=== PATIENT | female | born 1935 | race Caucasian/White ===

== ENCOUNTER 2016-11-24 06:34 | Inpatient (IN) ==
[2016-11-24] MEDS ORDERED: ACETAMINOPHEN 500 MG TABLET PO ONE (07:20)
[2016-11-24] MEDS ORDERED: NOZIN NASAL SWAB NAS ONE ×2 (07:30→11:09)
[2016-11-24] MEDS ORDERED: SALINE FLUSH 10ml SYRINGE IVF PRN (07:30)
[2016-11-24] MEDS ORDERED: LIDOCAINE 1% (10mg/ml) 10mL MDV SQ ONE (07:30)
--- NOTE | 2016-11-24 07:42 | Anesthesia Preoperative Report ---
Anesthesia Preoperative Record - Date and Time Date: 11/24/16 Preoperative Diagnosis: primary degenerative joint disease Proposed Procedure: left knee replacement NPO Since Date: 11/23/16 NPO Since Time: 23:00 Allergies/Adverse Reactions: Allergies Allergy/AdvReac Type Severity Reaction Status Date / Time meloxicam Allergy Intermediate SEVERE Verified 11/16/16 11:47 DIARRHEA oxycodone [From Percodan] Allergy Unknown hallucinati Verified 11/19/16 10:35 ons propoxyphene [From Darvon] Allergy Unknown Tachycardia Verified 11/09/16 16:32 Sulfa (Sulfonamide Allergy Verified 11/16/16 08:58 Antibiotics) - Vital Signs Vital Signs: Temp Pulse Resp BP Pulse Ox 98.4 F 68 13 155/84 H 95 11/24/16 07:06 11/24/16 07:21 11/24/16 07:06 11/24/16 07:06 11/24/16 07:06 Height and Weight: Height 1.59 m Weight 61.6 kg Body Mass Index 24.4 - Medications Inpatient Medications: Current Medications Cefazolin Sodium (Kefzol) 2 g IVP PREOP ONE Stop: 11/24/16 08:01 Dexamethasone (Decadron) 10 mg IVP PREOP ONE Stop: 11/24/16 08:01 Famotidine/Sodium Chloride (Pepcid Premix) 20 mg in 50 mls @ 100 mls/hr IV PREOP ONE Stop: 11/24/16 08:29 Sodium Chloride (Normal Saline) 1,000 mls @ 50 mls/hr IV .Q20H KOMAL Epinephrine HCl 0.25 mg/Bupivacaine HCl 75 ml/Morphine Sulfate 15 mg/ Sodium Chloride 108.25 mls @ 0 mls/hr IJ INTRAOP ONE; Per Protocol PRN Reason: Protocol Stop: 11/24/16 09:01 Tranexamic Acid 1,000 mg/ (Sodium Chloride) 110 mls @ 660 mls/hr IV INTRAOP ONE Stop: 11/24/16 08:39 Tranexamic Acid 1,000 mg/ (Sodium Chloride) 110 mls @ 660 mls/hr IV INTRAOP ONE Stop: 11/24/16 10:09 Metoclopramide HCl (Reglan) 10 mg IVP PREOP ONE Stop: 11/24/16 08:01 Ondansetron HCl (Zofran) 4 mg IVP PREOP ONE Stop: 11/24/16 08:01 Sodium Chloride (Iv Flush) 10 - 80 ml IVF PRN PRN PRN Reason: Flushing Home Medications: Home Medications Medication Instructions Recorded Confirmed Type Latanoprost [Latanoprost] 1 drop LEFT EYE HS 11/09/16 11/09/16 History carteolol 1 % eye drops 1 drop EACH EYE BID 50 Days 11/09/16 11/09/16 History ascorbic acid (vitamin C) 1,000 mg 1 g PO DAILY tab 11/16/16 11/19/16 History tablet cholecalciferol (vitamin D3) 1,000 1,000 mg PO DAILY tab 11/16/16 11/19/16 History unit tablet cholecalciferol (vitamin D3) 2,000 2,000 unit PO DAILY cap 11/16/16 11/19/16 History unit capsule magnesium oxide 420 mg tablet 420 mg PO DAILY tab 11/16/16 11/19/16 History omega-3s 720 mg-dha 300 mg-epa 360 1 cap PO DAILY cap 11/16/16 11/19/16 History mg-fish oil 1,200 mg capsule vitamin E 1,000 unit capsule 1,000 unit PO DAILY cap 11/16/16 11/19/16 History - Medical History Anesthesia Reactions: nausea and vomiting, other (long time to wake up hyst ) - Surgical History HEENT Surgeries: Reports: Eye Surgery (2009-glaucoma surgery) Musculoskeletal Surgery/Tx: Reports: Other (rt thumb surgery) Reproductive Surgery/Treatment: Reports: Hysterectomy - Social History Smoking Status: Never smoker - Pertinent Findings EKG Rhythm: Normal Sinus Rhythm - Physical Exam Respiratory Exam: Present: lungs clear, bilateral breath sounds equal - Airway Assessment TMD: 3 Fingerbreadths Neck Extension: good Overall Assessment: no airway concerns - ASA ASA Score: 2 - Plan Anesthesia: General Inhalation Gases Regional/Trunk Block: Spinal - Discussion Discussion: Discussed risks/options/alternatives of anesthesia and questions answered. Patient consents. Nursing pain assessment noted. Attestation Statement: Prior to the delivery of any anesthetic medication, I examined the patient, developed the plan, obtained the patient's consent and discussed the risk and benefits of the procedure with the patient/guardian.
[2016-11-24] MEDS ORDERED: VANCOMYCIN 1,000 MG INJECTION ONE (07:45)
[2016-11-24] MEDS: LR 1,000 ML IV SCH ×2 (07:46→09:01)
[2016-11-24] MEDS ORDERED: LIDOCAINE 1% (10mg/ml) 2mL INJ PF SDV ID ONE (07:50)
[2016-11-24] MEDS ORDERED: KETAMINE 500 MG/10 ML INJECTION ONE (07:56)
[2016-11-24] MEDS ORDERED: LIDOCAINE 2% (100mg/5mL) PF 5ml vl ONE (07:56)
[2016-11-24] MEDS ORDERED: FentaNYL 100 MCG/2 ML INJECTION ONE (07:56)
[2016-11-24] MEDS ORDERED: MIDAZOLAM 2mg/2ml INJECTION ONE (07:56)
[2016-11-24] MEDS ORDERED: PROPOFOL 20 ML ONE (07:56)
[2016-11-24] MEDS ORDERED: METOCLOPRAMIDE 10mg/2ml INJECTION IVP ONE (08:00)
[2016-11-24] MEDS ORDERED: ONDANSETRON 4 MG/2 ML INJECTION IVP ONE (08:00)
[2016-11-24] MEDS ORDERED: DEXAMETHASONE 4 MG/ML INJECTION IVP ONE (08:00)
[2016-11-24] MEDS ORDERED: CEFAZOLIN 1 G INJECTION IVP ONE (08:00)
[2016-11-24] MEDS ORDERED: NS 1,000 ML IV SCH (08:00)
[2016-11-24] MEDS ORDERED: FAMOTIDINE PREMIX 20 MG/50 ML BAG IV ONE (08:00)
[2016-11-24] MEDS ORDERED: TRANEXAMIC ACID 1,000 MG in NS 100 ML IV ONE ×2 (08:30→10:00)
[2016-11-24] MEDS ORDERED: EPHEDRINE 50mg/ml INJECTION ONE (08:53)
[2016-11-24] MEDS ORDERED: HYDROMORPHONE 2 MG/ML INJECTION IVP PRN (08:54)
[2016-11-24] MEDS ORDERED: EPINEPHRINE IJ ONE (09:00)
[2016-11-24] MEDS ORDERED: MORPHINE SULFATE IJ ONE (09:00)
[2016-11-24] MEDS ORDERED: BUPIVACAINE 0.25% IJ ONE (09:00)
[2016-11-24] MEDS ORDERED: NS IJ ONE (09:00)
[2016-11-24] MEDS ORDERED: ROPIVACAINE 0.5% (5mg/ml) 30ml INJ ONE (09:32)
[2016-11-24] MEDS ORDERED: VANCOMYCIN 1,000 MG INJECTION IAR ONE (09:38)
--- NOTE | 2016-11-24 09:54 | Operative Note ---
- Procedure Date of Admission: 11/24/16 Side: left Preoperative Diagnosis: knee primary DJD Postoperative Diagnosis: Same as preoperative diagnosis. Operation: total knee arthroplasty (left) Surgeon: Gerri Quintero MD Changer Fixer: IRWIN Wisdom Complications: None. Regional/Trunk Block: Spinal Estimated Blood Loss: See Anesthesia Record. Fluids: Please see Anesthesia Record. Description of Procedure: Mrs. Nick and her left knee were identified and marked in the preoperative holding area. She was brought back to the operating suite and placed supine on the operating table. Spinal anesthetic was administered. The operative lower extremity was prepped and draped in a sterile fashion. Timeout was performed. She had a varus deformity with no flexion contracture. An anterior midline incision followed by medial parapatellar arthrotomy was performed. The tourniquet was not used until cementing. Hemostasis was obtained with electrocautery. She had complete loss of cartilage and medial compartment and to a lesser extent the patellofemoral compartment. The patella was resurfaced to a size 32. A distal femoral osteotomy was then performed in 5 of valgus using intramedullary guide. The femur was sized at a for and rotation set using the epicondylar axis. Distal femoral cuts were performed with a 4-in-1 cutting block. A proximal tibial cut was then made perpendicular to its long axis using an extramedullary guide. At this point remaining meniscus and osteophytes were removed and joint cocktail was injected throughout soft tissue. Trial components were placed with a 9 mm spacer. This allowed for full extension and flexion and the patella tracked well. The leg was then exsanguinated and the tourniquet inflated to 250 mmHg. The tibia was then stamped at a size 3 at the proper rotation. The bone was then prepared for cementing and Albino Triathalon components were cemented into place and allowed to cure in extension. The tourniquet was then let down and hemostasis obtained with electrocautery. Betadine solution was used during the curing period for 3 minutes. 1 g of vancomycin powder was placed into the joint before the capsulotomy was repaired with #1 Vicryl. I then left my children's nursery assistant close the subcutaneous tissue and skin with 2-0 Vicryl and Monocryl. Dermabond was used on the skin. The drapes were then removed and she was taken to recovery room under the care of anesthesia.
--- NOTE | 2016-11-24 10:09 | History & Physical Update ---
- History and Physical Update Date: 11/24/16 Update: I evaluated this patient and found no changes in the history and clinical exam findings. The treatment plan and recommendations are also unchanged from the previous documentation.
--- NOTE | 2016-11-24 10:27 | Anesthesia Procedure Note ---
Peripheral Nerve Blockade - Procedure Physician: Sanjeev Quintero MD Date: 11/24/16 Surgical Procedure: left knee arthroplasty Discussion: Discussed risks/options/alternatives of anesthesia and questions answered. Patient consents. Nursing pain assessment noted. Block Start: 10:22 Block Stop: 10:24 Blocked Employed: Adductor Canal Indication: Post-Operative Pain Approach: Left Side Confirmed Position: Supine Patient: Consent, Risks/Benefits Discussed, Informed IV Sedation: No Initial Vital Signs: Temperature 98.4 F 11/24/16 07:06 Temperature Source Oral 11/24/16 07:06 Pulse Rate 72 11/24/16 07:06 Respiratory Rate 13 11/24/16 07:06 Blood Pressure 155/84 H 11/24/16 07:06 Blood Pressure Mean 107 11/24/16 07:06 Blood Pressure Position Sitting 11/24/16 07:06 Pulse Oximetry 95 11/24/16 07:06 Oxygen Delivery Method 11/24/16 07:06 Post Vital Signs: Temp Pulse Resp BP Pulse Ox 98.4 F 68 13 155/84 H 95 11/24/16 07:06 11/24/16 07:21 11/24/16 07:06 11/24/16 07:06 11/24/16 07:06 Initial Pain Pain Score: 0 Post Block Pain Score: 0 Prep: Chlorhexadine/ETOH Ultrasound Used?: Yes - Injectate Ropivacaine (%): 0.5 Ropivacaine (mL): 20 Was Epi 1:200,000 Used?: No Injection: Injection made incrementally with constant monitoring and aspiration every ml
--- NOTE | 2016-11-24 10:28 | Anesthesia Postoperative Note ---
- Date and Time Date: 11/24/16 Time: 10:30 - Status Patient Participated in Evaluation: Patient Participated in Person Vital Signs: Temp Pulse Resp BP Pulse Ox 98.4 F 68 13 155/84 H 95 11/24/16 07:06 11/24/16 07:21 11/24/16 07:06 11/24/16 07:06 11/24/16 07:06 Respiratory Function: Airway Patent Cardiovascular Function: Regular Pulse EKG Rhythm: Normal Sinus Rhythm Mental Status: Alert and Oriented Pain Intensity: 0 Hydration: IV Infusing Complications During Recover: None Apparent - Follow-Up Instructions Instructions: Per Surgeon
--- NOTE | 2016-11-24 10:45 | XRay Report ---
Indication: postoperative image left knee replacement PROCEDURE: XR knee LT 2V: Encounter: Initial Comparison: None Findings: Postoperative changes of left total knee replacement are seen. There is expected postoperative subcutaneous gas. No evidence of hardware failure or acute fracture. No retained radiopaque surgical instruments or sponges. Overlying material causing artifact. Impression: New left total knee prosthesis without evidence of immediate complication. .
[2016-11-24] MEDS ORDERED: DiphenhydrAMINE 50 MG/ML INJECTION IVP PRN (11:09)
[2016-11-24] MEDS ORDERED: ONDANSETRON 4 MG/2 ML INJECTION IVP PRN (11:09)
[2016-11-24] MEDS ORDERED: LORazepam 0.5 MG TABLET PO PRN (11:09)
[2016-11-24] MEDS ORDERED: DiphenhydrAMINE 25 MG CAPSULE PO PRN (11:09)
[2016-11-24] MEDS ORDERED: LORazepam 1 MG TABLET PO PRN (11:09)
[2016-11-24] MEDS: NS 1,000 ML IV SCH (11:15)
[2016-11-24] MEDS: TRAMADOL 50 MG TABLET PO PRN ×2 (13:03→22:13)
[2016-11-24] MEDS: ACETAMINOPHEN 325 MG TABLET PO SCH ×3 (13:03→21:58)
[2016-11-24] MEDS: CEFAZOLIN 2 G in NS 100 ML IV SCH (16:17)
[2016-11-24] MEDS: NOZIN NASAL SWAB NAS SCH ×2 (16:17→21:57)
[2016-11-24] MEDS: DOCUSATE SODIUM 100 MG CAPSULE PO SCH (21:59)
[2016-11-24] MEDS ORDERED: SENNOSIDES 8.6 MG TABLET PO SCH (22:00)
[2016-11-24] MEDS ORDERED: LATANOPROST 0.005% EYE DROPS 2.5ml LEFT EYE SCH (22:00)
[2016-11-24] MEDS: ASPIRIN *EC* 325 MG TABLET PO SCH (22:01)
[2016-11-24] MEDS: CARTEOLOL 1% EACH EYE SCH (22:01)
[2016-11-24] MEDS: EYE EACH EYE SCH (22:01)
[2016-11-25] MEDS: CEFAZOLIN 2 G in NS 100 ML IV SCH (00:03)
[2016-11-25] MEDS: NS 1,000 ML IV SCH (04:07)
[2016-11-25] MEDS: NOZIN NASAL SWAB NAS SCH ×2 (06:20→13:10)
--- NOTE | 2016-11-25 08:11 | Orthopedic Progress Note ---
Date: Subjective/Severity of Illness: Herve is doing great. Pain is controlled. She walked with good tolerance. She describes a difficulty initiating knee flexion yesterday but that has improved. No CP, cough or feeling SOA. Sats did dip to the mid-upper 80's after pain medicine last night. No further episodes. Pt is hopeful to go home later today. Orthopedic Objective PO Vital signs: Temp Pulse Resp BP Pulse Ox 97.9 F 72 16 116/66 96 11/25/16 07:43 11/25/16 07:43 11/25/16 07:43 11/25/16 07:43 11/25/16 07:43 Height and Weight: Height 5 ft 2.5 in Weight 135 lb 12.876 oz Body Mass Index 24.4 - Constitutional General Appearance: Present: alert, no acute distress - Respiratory Exam Present: non-labored - Cardiovascular Exam Present: pedal pulses intact - Surgical Site Incision: Mepilex dressing intact, no drainage - Neurological Exam Present: intact to light touch, no deficits - Psychiatric Exam Present: alert, normal affect - Labs Result Diagrams: 11/25/16 04:20 11/25/16 04:20 Abnormal lab results 11/25/16 Range/Units 04:20 WBC 15.5 H (4.5-11.0) T/MM3 RBC 3.58 L (4.00-5.20) M/MM3 Hgb 10.8 L (12-16) GM/DL Hct 33.2 L (36-46) % H & H 11/25/16 Range/Units 04:20 Hgb 10.8 L (12-16) GM/DL Hct 33.2 L (36-46) % Orthopedic Assessment and Plan (1) Status post total left knee replacement Status: Acute Assessment and Plan: Herve is doing well. I see no concerns with her knee stability or motion at this time. Sats decreased to mid 80's but has been stable most of the night. Monitor. WBC elevation likely due to pre op steroids. Pt is afebrile and has no s/sx of infection. I expect discharge later today. Current anti-coagulation protocol for VTE prophylaxis. SCD's. PT/OT services to improve independent function. Discharge Planning per Case Management. Hospital Course Summary Disclaimer: The visit summary below is not to be considered part of the above Progress Note.
[2016-11-25] MEDS: ASPIRIN *EC* 325 MG TABLET PO SCH (08:35)
[2016-11-25] MEDS: DOCUSATE SODIUM 100 MG CAPSULE PO SCH (08:36)
[2016-11-25] MEDS: ACETAMINOPHEN 325 MG TABLET PO SCH ×2 (08:37→13:10)
[2016-11-25] MEDS: CARTEOLOL 1% EACH EYE SCH (08:37)
[2016-11-25] MEDS: EYE EACH EYE SCH (08:37)
[2016-11-25] MEDS ORDERED: POLYETHYL GLYCOL 3350 17gm PACKET PO SCH (09:00)
[2016-11-25] MEDS: TRAMADOL 50 MG TABLET PO PRN ×2 (09:37→16:02)
[2016-11-25] MEDS ORDERED: SENNOSIDES 8.6 MG TABLET PO PRN (10:10)
--- NOTE | 2016-11-25 15:18 | Discharge Summary ---
Orthopedic Discharge Info Date of admission: 11/24/16 06:34 Primary care physician: Micah Lunsford MD Attending Physician: Sanjeev Quintero MD Consults: 11/24/16 06:48 Consult to Anesthesiology [CONS] Routine Consulting Provider: IRWIN Duarte Reason For Exam: Preoperative Assessment 11/24/16 11:09 Case Management Consult [CONS] Routine Reason For Exam: Discharge Planning DME-Walker [CONS] Routine Height: 5 ft 2.5 in Weight: 135 lb 12.876 oz Comment: change dressing in 2 weeks Total Joint Outpatient Therapy [CONS] Routine Comment: change dressing in 2 weeks - Discharge Diagnosis (1) Status post total left knee replacement Status: Acute - Laboratory Result Diagrams: 11/25/16 04:20 11/25/16 04:20 Laboratory: Abnormal lab results 11/25/16 Range/Units 04:20 WBC 15.5 H (4.5-11.0) T/MM3 RBC 3.58 L (4.00-5.20) M/MM3 Hgb 10.8 L (12-16) GM/DL Hct 33.2 L (36-46) % H & H 11/25/16 Range/Units 04:20 Hgb 10.8 L (12-16) GM/DL Hct 33.2 L (36-46) % Orthopedic Discharge HPI - HPI Comments This patient was admitted for elective surgical tx of end stage degenerative joint disease that failed to respond to conservative treatment. Further details of this is found in the admission H&P. Orthopedic Hospital Course Hospital course: 11/25/16 15:13 After appropriate preoperative clearance and signing of operative consent, the patient was given IV antibiotics, according to orthopedic protocol. The patient was taken to the operating room and underwent elective joint arthroplasty. Following surgery, antibiotics were discontinued less than 24 hours according to joint protocol. Appropriate anticoagulants were initiated and SCDs added for DVT prevention. The dressing was clean, dry, and intact. Pain control was obtained via multimodal approach. Bowel motivation addressed with scheduled and PRN medications. Early mobilization was initiated through PT services. Discharge arrangements made by a collaborative effort between the patient and Case Management. Follow-up is scheduled in 2-3 weeks. Discharge instructions given by orthopedic providers and nursing staff at discharge. Discharge condition was good. Ongoing care required?: No - Postoperative Anemia patient received IVF, labs monitored daily, no intervention required, HGB drop- acceptable - Leukocytosis due to preoperative IV Decadron, due to surgical stress response Discharge Plan - Med Rec/Dispo Referrals/Follow Up: Sanjeev Quintero MD [Physician] - 12/16/16 2:45 pm Sara Instructions: [facility] Postop Instructions Additional Instructions: ANGELICA LAWRENCE ON 11/27/2016 AT 10:00AM FOR PHYSICAL THERAPY EVAL. PHONE Prescriptions: New Aspirin *EC* [Ecotrin] 325 mg PO BID #84 PEG 3350 17gm PACKET [Miralax] 17 gm PO DAILY #30 packet Acetaminophen [Tylenol] 650 mg PO QID #100 Tramadol [Ultram] 50 - 100 mg PO Q6H PRN #60 PRN Reason: Pain Continue LORazepam [Ativan] 0.5 mg PO DAILY PRN PRN Reason: Anxiety Folic Acid/Mv,Iron,Min [One Daily For Women Tablet] 1 tab PO DAILY Latanoprost 1 drop LEFT EYE HS carteolol 1 % eye drops 1 drop EACH EYE BID 50 Days cholecalciferol (vitamin D3) 2,000 unit capsule 2,000 unit PO DAILY cap - Disposition 01 Discharged Home, Self-Care
[2016-11-26] MEDS ORDERED: BISACODYL 10 MG SUPPOSITORY RECTALLY SCH (20:00)
== END 2016-11-25 16:35 | disposition home or self-care (01) | DRG 470 ==
LOC: SRG 06:34
PROVIDERS: ADMIT Orthopaedic Surgery; ATTEND Orthopaedic Surgery

== ENCOUNTER 2017-03-02 07:30 | Inpatient (IN) ==
[~2017-03-02 07:30] MED LIST: ACETAMINOPHEN 500 MG TABLET PO ONE; DEXAMETHASONE 4 MG/ML INJECTION IVP ONE; FAMOTIDINE PB 20 MG/50 ML BAG IV ONE; LIDOCAINE 1% (10mg/ml) 2mL INJ PF SDV ID ONE; METOCLOPRAMIDE 10mg/2ml INJECTION IVP ONE; NOZIN NASAL SWAB NAS ONE; ONDANSETRON 4 MG/2 ML INJECTION IVP ONE; TRANEXAMIC ACID 1,000 MG in NS 100 ML IV ONE
[2017-03-02] MEDS ORDERED: EPINEPHrine 0.25 MG, BUPIVACAINE 0.25% PF 30 ML, MORPHINE SULFATE 15 MG, KETOROLAC INJ ... OPSITE ONE (08:00)
[2017-03-02] MEDS ORDERED: CEFAZOLIN 1 G INJECTION IVP ONE (08:26)
--- NOTE | 2017-03-02 08:29 | Anesthesia Preoperative Report ---
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 Proposed Procedure: Robotic Right total knee NPO Since Date: 03/02/17 NPO Since Time: 00:00 Allergies/Adverse Reactions: Allergies Allergy/AdvReac Type Severity Reaction Status Date / Time Sulfa (Sulfonamide Allergy Verified 01/06/17 14:38 Antibiotics) meloxicam AdvReac Intermediate SEVERE Verified 01/06/17 14:38 DIARRHEA tramadol AdvReac Intermediate Gastrointestinal Verified 02/10/17 13:59 Upset oxycodone [From Percodan] AdvReac Unknown hallucinati Verified 01/06/17 14:38 ons propoxyphene [From Darvon] AdvReac Unknown Tachycardia Verified 01/06/17 14:38 - Medications Inpatient Medications: Current Medications Epinephrine HCl 0.25 mg/Bupivacaine HCl 30 ml/Morphine Sulfate 15 mg/Ketorolac Tromethamine 60 mg/Sodium Chloride 65.25 mls @ 1 mls/hr OPSITE INTRAOP ONE PRN Reason: Protocol Stop: 03/05/17 01:14 Sodium Chloride (Iv Flush) 10 - 80 ml IV PRN PRN PRN Reason: Flushing Home Medications: Home Medications Medication Instructions Recorded Confirmed Type Latanoprost 1 drop LEFT EYE HS 11/09/16 02/11/17 History carteolol 1 % eye drops 1 drop EACH EYE BID 50 Days 11/09/16 02/11/17 History cholecalciferol (vitamin D3) 2,000 2,000 unit PO DAILY cap 11/16/16 02/11/17 History unit capsule Folic Acid/Mv,Iron,Min [One Daily 1 tab PO DAILY 11/24/16 02/11/17 History For Women Tablet] Is Patient on Beta Marisol?: No - Medical History Other History: Reports: Other (Glaucoma) - Surgical History HEENT Surgeries: Reports: Tonsillectomy Reproductive Surgery/Treatment: Reports: Hysterectomy Anesthesia Reactions: None Hx Family Anesthesia Reaction: No History of Motion Sickness: No - Social History Smoking Status: Never smoker Hx Chewing Tobacco Use: No Second Hand Exposure: No Substance Use Type: does not use Alcohol Intake Frequency: a few times a week - Pertinent Findings EKG: Sinus Rhythm - Physical Exam Respiratory Exam: Present: lungs clear Cardiovascular Exam: Present: regular rate and rhythm - Airway Assessment Mallampati Score: II TMD: 3 Fingerbreadths Neck Extension: fair Overall Assessment: no airway concerns - ASA ASA Score: 2 - Plan Regional/Trunk Block: Spinal - Discussion Discussion: Discussed risks/options/alternatives of anesthesia and questions answered. Patient consents. Nursing pain assessment noted. Present for Discussion: family member Attestation Statement: Prior to the delivery of any anesthetic medication, I examined the patient, developed the plan, obtained the patient's consent and discussed the risk and benefits of the procedure with the patient/guardian. - Additional Information Seen by Anesthesia: Yes
[2017-03-02 08:30] VITALS: BMI 24.3
[2017-03-02] MEDS: LR 1,000 ML IV SCH ×3 (08:51→13:01)
--- NOTE | 2017-03-02 09:14 | History & Physical Update ---
- History and Physical Update Date: 03/02/17 Update: I evaluated this patient and found no changes in the history and clinical exam findings. The treatment plan and recommendations are also unchanged from the previous documentation.
[2017-03-02] MEDS ORDERED: VANCOMYCIN 1,000 MG INJECTION ONE (09:37)
[2017-03-02] MEDS ORDERED: PROPOFOL 500 MG/50 ML VIAL IV ONE ×2 (10:13→11:03)
[2017-03-02] MEDS ORDERED: MIDAZOLAM 2mg/2ml INJECTION ONE (10:14)
[2017-03-02] MEDS ORDERED: EPHEDRINE 50mg/ml INJECTION ONE (10:35)
[2017-03-02] MEDS ORDERED: ONDANSETRON 4 MG/2 ML INJECTION IVP PRN ×2 (10:58→13:24)
[2017-03-02] MEDS ORDERED: HYDROMORPHONE 2 MG/ML INJECTION IVP PRN (10:58)
[2017-03-02] MEDS ORDERED: ROPIVACAINE 0.5% (5mg/ml) 30ml INJ ONE (11:03)
[2017-03-02] MEDS ORDERED: KETAMINE 500 MG/10 ML INJECTION ONE (11:37)
[2017-03-02] MEDS ORDERED: FentaNYL 100 MCG/2 ML INJECTION ONE (11:38)
[2017-03-02] MEDS: VANCOMYCIN 1,000 MG INJECTION IAR ONE ×2 (11:56→15:02)
[2017-03-02] MEDS: TRANEXAMIC ACID 1,000 MG in NS 100 ML IV ONE ×2 (12:02→14:40)
--- NOTE | 2017-03-02 12:17 | Operative Note ---
- Procedure Preoperative Diagnosis: Right knee primary degenerative joint disease Postoperative Diagnosis: Same as preoperative diagnosis. Surgeon: Gerri Quintero MD Corporate Recruiter: Sergey Valdez Complications: None. Anesthesia: Spinal. Estimated Blood Loss: See Anesthesia Record. Fluids: Please see Anesthesia Record. Description of Procedure: Mrs. Nick and her right knee were identified and marked in the preoperative holding area. She was brought back to the operating suite after a saphenous nerve block was placed in the preoperative holding area. Spinal anesthetic was administered and she was placed supine on the operating table. The right lower extremity was prepped and draped in my normal sterile fashion. Timeout was performed. The [employer] robot was used during the surgery. She had a partially correctable varus knee with a slight flexion contracture. A standard anterior midline incision followed by medial parapatellar arthrotomy was performed. Anterior fat pad and meniscus were removed. The patella was resurfaced to a size 32. I then placed a tibial array to 2 poke hole incisions in the mid tibia just medial to the crest. The pins were placed bicortically. I then placed a second femoral array again using bicortical pins in the distal femoral metaphysis medially. Checkpoints were then placed both in the femur and the tibia. The bone was then registered with the [employer] robot. Osteophytes were removed and gaps were captured both 90 and 0 with correction. The [employer] or was then used to balance the knee obtaining 18 mm gaps throughout. This was done by removing the femoral component anteriorly and distally. The [employer] robotic arm was then used to assist with the bone cuts. Posterior osteophytes and remaining meniscus were removed. Trial components were placed. We used a 4 femur and a 4 tibia with a 9 mm spacer. She tracked well and was well balanced throughout range of motion. The leg was exsanguinated and the tourniquet inflated to 250 mmHg. The bone was prepared for cementing and components were cemented into place and allowed to cure in extension. The tourniquet was let down and hemostasis obtained with electrocautery. The knee was ranged one more time to ensure good stability, balance and patellar tracking. 1 g of vancomycin powder was then placed into the knee joint. The capsulotomy was then closed with #1 Vicryl. I then left my logistics assistant to close the subcutaneous tissue with 2-0 Vicryl. Running 4-0 Monocryl will be used in the subcuticular layer. Dermabond will be used on the skin followed by sterile dressing. After drapes are removed patient will be taken to recovery room under the care of anesthesia.
--- NOTE | 2017-03-02 12:50 | Anesthesia Procedure Note ---
Peripheral Nerve Blockade - Procedure Physician: Sanjeev Quintero MD Date: 03/02/17 Surgical Procedure: right tka Discussion: Discussed risks/options/alternatives of anesthesia and questions answered. Patient consents. Nursing pain assessment noted. Block Start: 12:43 Block Stop: 12:44 Indication: Post-Operative Pain Approach: Right Side Confirmed Position: Supine Patient: Consent, Risks/Benefits Discussed, Post Block Act. Discussed IV Sedation: No Initial Vital Signs: Temperature 98.5 F 03/02/17 08:29 Temperature Source Oral 03/02/17 08:29 Pulse Rate 81 03/02/17 08:29 Respiratory Rate 16 03/02/17 08:29 Blood Pressure 144/85 H 03/02/17 08:29 Blood Pressure Mean 104 03/02/17 08:29 Blood Pressure Position Sitting 03/02/17 08:29 Pulse Oximetry 94 03/02/17 08:29 Oxygen Delivery Method 03/02/17 08:29 Post Vital Signs: Temperature 98.5 F 03/02/17 08:29 Pulse Rate 66 03/02/17 08:43 Respiratory Rate 16 03/02/17 08:29 Blood Pressure 144/85 H 03/02/17 08:29 Pulse Oximetry 94 03/02/17 08:29 Initial Pain Pain Score: 0 Post Block Pain Score: 0 Prep: Chlorhexadine/ETOH Ultrasound Used?: Yes - Injectate Ropivacaine (%): 0.5 Ropivacaine (mL): 20 Was Epi 1:200,000 Used?: No Injection: Injection made incrementally with constant monitoring and aspiration every ml
--- NOTE | 2017-03-02 12:50 | Anesthesia Postoperative Note ---
- Date and Time Date: 03/02/17 Time: 12:50 - Status Patient Participated in Evaluation: Patient Participated in Person Vital Signs: Temperature 98.5 F 03/02/17 08:29 Pulse Rate 66 03/02/17 08:43 Respiratory Rate 16 03/02/17 08:29 Blood Pressure 144/85 H 03/02/17 08:29 Pulse Oximetry 94 03/02/17 08:29 Respiratory Function: Airway Patent Cardiovascular Function: Regular Pulse EKG: Sinus Rhythm Mental Status: Alert and Oriented Pain Intensity: 0 Hydration: IV Infusing Complications During Recover: None Apparent - Follow-Up Instructions Instructions: Per Surgeon
[2017-03-02] MEDS ORDERED: LORazepam 1 MG TABLET PO PRN (13:24)
[2017-03-02] MEDS ORDERED: NOZIN NASAL SWAB NAS ONE (13:24)
[2017-03-02] MEDS ORDERED: DiphenhydrAMINE 25 MG CAPSULE PO PRN (13:24)
[2017-03-02] MEDS ORDERED: DiphenhydrAMINE 50 MG/ML INJECTION IVP PRN (13:24)
--- NOTE | 2017-03-02 13:28 | XRay Report ---
Indication: postoperative image PROCEDURE: XR knee RT 2V: Encounter: Initial Comparison: February 10, 2017 Findings: Postoperative changes of right total knee replacement are seen. There is expected postoperative subcutaneous gas. No evidence of hardware failure or acute fracture. No retained radiopaque surgical instruments or sponges. Overlying material causing artifact. Impression: New right total knee prosthesis without evidence of immediate complication. .
[2017-03-02] MEDS: NS 1,000 ML IV SCH (14:00)
[2017-03-02] MEDS: ACETAMINOPHEN 325 MG TABLET PO SCH ×4 (15:00→21:15)
[2017-03-02] MEDS: NOZIN NASAL SWAB NAS SCH ×2 (15:13→21:14)
[2017-03-02] MEDS ORDERED: SALINE FLUSH 10ml SYRINGE IV PRN (16:57)
[2017-03-02] MEDS: Oxycodone *IR* 5 MG TABLET PO PRN ×2 (17:49→21:14)
[2017-03-02] MEDS: CEFAZOLIN 2 G in NS 100 ML IV SCH (17:50)
[2017-03-02] MEDS: SENNOSIDES 8.6 MG TABLET PO SCH (21:15)
[2017-03-02] MEDS: DOCUSATE SODIUM 100 MG CAPSULE PO SCH (21:15)
[2017-03-02] MEDS: ASPIRIN *EC* 325 MG TABLET PO SCH (21:15)
[2017-03-02] MEDS: EYE EACH EYE SCH (21:18)
[2017-03-02] MEDS: CARTEOLOL 1% EACH EYE SCH (21:18)
[2017-03-02] MEDS: LATANOPROST 0.005% EYE DROPS 2.5ml LEFT EYE SCH (21:18)
[2017-03-03] MEDS: CEFAZOLIN 2 G in NS 100 ML IV SCH (01:18)
[2017-03-03] MEDS: NOZIN NASAL SWAB NAS SCH ×3 (05:59→21:04)
[2017-03-03] MEDS: Oxycodone *IR* 5 MG TABLET PO PRN (06:02)
[2017-03-03 06:38] VITALS: RESP 16
[2017-03-03] MEDS: NS 1,000 ML IV SCH ×3 (06:49→22:49)
[2017-03-03] MEDS: ASPIRIN *EC* 325 MG TABLET PO SCH ×2 (08:23→20:30)
[2017-03-03] MEDS: DOCUSATE SODIUM 100 MG CAPSULE PO SCH ×2 (08:23→20:30)
[2017-03-03] MEDS: EYE EACH EYE SCH ×2 (08:23→20:30)
[2017-03-03] MEDS: POLYETHYL GLYCOL 3350 17gm PACKET PO SCH (08:23)
[2017-03-03] MEDS: CARTEOLOL 1% EACH EYE SCH ×2 (08:23→20:30)
[2017-03-03] MEDS: ACETAMINOPHEN 325 MG TABLET PO SCH ×2 (08:24→15:40)
--- NOTE | 2017-03-03 08:31 | Orthopedic Progress Note ---
Date: Subjective/Severity of Illness: Herve is doing well. Pain is controlled with Roxicodone. She had some hallucinations with Percodan in the past but takes Hydrocodone at home with no trouble. I elected to proceed with Roxicodone and she is tolerating it well. No hallucinations or mental status change. Denies CP, or respiratory complaints. Orthopedic Objective PO Vital signs: Temperature 96.6 F L 03/03/17 08:00 Pulse Rate 71 03/03/17 08:00 Respiratory Rate 16 03/03/17 08:00 Blood Pressure 113/72 03/03/17 08:00 Pulse Oximetry 95 03/03/17 08:00 Height and Weight: Height 5 ft 2.5 in Weight 135 lb 2.294 oz Body Mass Index 24.3 - Constitutional General Appearance: Present: alert, no acute distress, other (Standing at her bedside this AM. Spirits are good. Daughter in the room with her.) - Respiratory Exam Present: non-labored, other (Sats dipped into the upper 80's overnight but is normal this AM.) - Extremities Exam Extremities: Present: pulses intact - Surgical Site Incision: Mepilex dressing intact, dressing intact, no drainage - Integumentary Exam Present: pink, warm, dry - Neurological Exam Present: no deficits - Psychiatric Exam Present: alert, normal affect - Labs Result Diagrams: 03/03/17 04:18 03/03/17 04:18 Abnormal lab results 03/03/17 03/03/17 Range/Units 04:18 04:18 WBC 16.3 H (4.5-11.0) T/MM3 RBC 3.53 L (4.00-5.20) M/MM3 Hgb 10.3 L (12-16) GM/DL Hct 31.7 L (36-46) % BUN 21.0 H (7-17) MG/DL Glucose 126 H (65-110) MG/DL H & H 03/03/17 Range/Units 04:18 Hgb 10.3 L (12-16) GM/DL Hct 31.7 L (36-46) % Orthopedic Assessment and Plan (1) Primary osteoarthritis of right knee Status: Acute Assessment and Plan: Current anti-coagulation protocol for VTE prophylaxis. SCD's. Discussed narcotic options this AM. Pt and daughter wish to remain on Roxicodone. PT/OT services to improve independent function. Discharge Planning per Case Management. - Anticoagulation Therapy Anticoagulation: ASA 325 mg PO BID x6 weeks Hospital Course Summary Disclaimer: The visit summary below is not to be considered part of the above Progress Note.
[2017-03-03] MEDS ORDERED: NON-FORMULARY MEDICATION 1 EACH EACH (Cholecalciferol (Vitamin D3) [Vitamin D3] 2,000 UNIT PO SCH (09:00)
[2017-03-03] MEDS ORDERED: SENNOSIDES 8.6 MG TABLET PO PRN (09:15)
[2017-03-03] MEDS ORDERED: METOCLOPRAMIDE 10mg/2ml INJECTION IVP PRN (10:20)
[2017-03-03] MEDS ORDERED: HYDROCODONE/APAP 7.5 MG/325 MG TABLET PO PRN (15:35)
--- NOTE | 2017-03-03 15:39 | Orthopedic Progress Note ---
Date: Subjective/Severity of Illness: Herve has been struggling with nausea and emesis all day. She feels "woozy". Her emesis occurred after breakfast this AM. Her fluids were re started. All she has eaten since then is some yogurt. PT did pass her for the car and stairs today. She is just not comfortable considering discharge at this time. I offered to switch her to Hydrocodone and she agreed. She had some hallucinations with Percodan in the past but takes Hydrocodone at home with no trouble. No hallucinations or mental status change. Denies CP, or respiratory complaints. Orthopedic Objective PO Vital signs: Temperature 95.5 F L 03/03/17 12:00 Pulse Rate 56 L 03/03/17 12:00 Respiratory Rate 16 03/03/17 12:00 Blood Pressure 116/63 03/03/17 12:00 Pulse Oximetry 96 03/03/17 12:00 Height and Weight: Height 5 ft 2.5 in Weight 135 lb 2.294 oz Body Mass Index 24.3 - Constitutional General Appearance: Present: alert, no acute distress, other (Standing at her bedside this AM. Spirits are good. Daughter in the room with her.) - Respiratory Exam Present: non-labored, other (Sats dipped into the upper 80's overnight but is normal this AM.) - Extremities Exam Extremities: Present: pulses intact - Surgical Site Incision: Mepilex dressing intact, dressing intact, no drainage - Integumentary Exam Present: pink, warm, dry - Neurological Exam Present: no deficits - Psychiatric Exam Present: alert, normal affect - Labs Result Diagrams: 03/03/17 04:18 03/03/17 04:18 Abnormal lab results 03/03/17 03/03/17 Range/Units 04:18 04:18 WBC 16.3 H (4.5-11.0) T/MM3 RBC 3.53 L (4.00-5.20) M/MM3 Hgb 10.3 L (12-16) GM/DL Hct 31.7 L (36-46) % BUN 21.0 H (7-17) MG/DL Glucose 126 H (65-110) MG/DL H & H 03/03/17 Range/Units 04:18 Hgb 10.3 L (12-16) GM/DL Hct 31.7 L (36-46) % Orthopedic Assessment and Plan (1) Primary osteoarthritis of right knee Status: Acute Assessment and Plan: Current anti-coagulation protocol for VTE prophylaxis. SCD's. I will start [place]. PT/OT services to improve independent function. Discharge Planning per Case Management. - Anticoagulation Therapy Anticoagulation: ASA 325 mg PO BID x6 weeks Hospital Course Summary Disclaimer: The visit summary below is not to be considered part of the above Progress Note.
[2017-03-03] MEDS: SENNOSIDES 8.6 MG TABLET PO SCH (20:29)
[2017-03-03] MEDS: LATANOPROST 0.005% EYE DROPS 2.5ml LEFT EYE SCH (20:30)
[2017-03-04] MEDS: NOZIN NASAL SWAB NAS SCH (05:34)
--- NOTE | 2017-03-04 07:33 | Discharge Summary ---
Orthopedic Discharge Info Date of admission: 03/02/17 08:13 Primary care physician: Micah Lunsford MD Attending Physician: Sanjeev Quintero MD Consults: 03/02/17 08:25 Consult to Anesthesiology [CONS] Routine Consulting Provider: IRWIN Duarte Reason For Exam: Preoperative Assessment 03/02/17 13:24 Case Management Consult [CONS] Routine Reason For Exam: Discharge Planning DME-[facility] [CONS] Routine Height: 5 ft 2.5 in Weight: 135 lb 2.294 oz Comment: change dressing in 2 weeks Total Joint Outpatient Therapy [CONS] Routine Comment: change dressing in 2 weeks - Discharge Diagnosis (1) Primary osteoarthritis of right knee Status: Acute - Procedures Procedures: Procedures Replacement of Right Knee Joint with Synthetic Substitute, Cemented, Open Approach (11/24/16) - Laboratory Result Diagrams: 03/04/17 04:05 03/04/17 04:05 Laboratory: Abnormal lab results 03/04/17 03/04/17 Range/Units 04:05 04:05 WBC 12.9 H (4.5-11.0) T/MM3 RBC 3.52 L (4.00-5.20) M/MM3 Hgb 10.2 L (12-16) GM/DL Hct 31.9 L (36-46) % Chloride 110 H (98-107) MEQ/L BUN 23.0 H (7-17) MG/DL BUN/Creatinine Ratio 29 H (6-26) RATIO H & H 03/03/17 03/04/17 Range/Units 04:18 04:05 Hgb 10.3 L 10.2 L (12-16) GM/DL Hct 31.7 L 31.9 L (36-46) % Orthopedic Discharge HPI - HPI Comments This patient was admitted for elective surgical tx of end stage degenerative joint disease that failed to respond to conservative treatment. Further details of this is found in the admission H&P. Orthopedic Hospital Course Hospital course: 03/04/17 07:28 After appropriate preoperative clearance and signing of operative consent, the patient was given IV antibiotics, according to orthopedic protocol. The patient was taken to the operating room and underwent elective joint arthroplasty. Following surgery, antibiotics were discontinued less than 24 hours according to joint protocol. Appropriate anticoagulants were initiated and SCDs added for DVT prevention. The dressing was clean, dry, and intact. Pain control was obtained via multimodal approach. Bowel motivation addressed with scheduled and PRN medications. Early mobilization was initiated through PT services. Discharge arrangements made by a collaborative effort between the patient and Case Management. Follow-up is scheduled in 2-3 weeks. Discharge instructions given by orthopedic providers and nursing staff at discharge. Discharge condition was good. Ongoing care required?: No - Postoperative Anemia patient received IVF, labs monitored daily, no intervention required, HGB drop- acceptable - Leukocytosis due to surgical stress response Discharge Plan - Med Rec/Dispo Referrals/Follow Up: Sanjeev Quintero MD [Physician] - 03/24/17 1:00 pm Additional Instructions: PHYSICAL THERAPY WITH SEBASTIAN AT [facility] IN [place] AT 1:00 PM. [address] [place] [address] P#[phone] Prescriptions: New Aspirin [Aspirin EC] 81 mg PO BID #84 tablet. Ondansetron [Zofran Odt] 1 tab PO Q6HR #10 tab Hydrocodone/APAP 7.5/325 [[place] 7.5/325] 1 - 2 tab PO Q4H PRN #60 tab PRN Reason: Pain Continue Folic Acid/Mv,Iron,Min [One Daily For Women Tablet] 1 tab PO DAILY Latanoprost 1 drop LEFT EYE HS carteolol 1 % eye drops 1 drop EACH EYE BID 50 Days cholecalciferol (vitamin D3) 2,000 unit capsule 2,000 unit PO DAILY cap Discontinued [place] 5 mg-acetaminophen 325 mg tablet 1 tab PO Q6H PRN #30 tab PRN Reason: pain
[2017-03-04 07:43] VITALS: BP 120/73; PULSE 81; TEMP 99.1; O2SAT 94
--- NOTE | 2017-03-04 09:16 | Orthopedic Progress Note ---
Date: Subjective/Severity of Illness: The switch to Hydrocodone helped her nausea, she feels ready for discharge. She had some hallucinations with Percodan in the past but takes Hydrocodone at home with no trouble. No hallucinations or mental status change. Denies CP, or respiratory complaints. Orthopedic Objective PO Vital signs: Temperature 99.1 F 03/04/17 07:41 Pulse Rate 81 03/04/17 07:41 Respiratory Rate 16 03/04/17 07:41 Blood Pressure 120/73 03/04/17 07:41 Pulse Oximetry 94 03/04/17 07:41 Height and Weight: Height 5 ft 2.5 in Weight 135 lb 2.294 oz Body Mass Index 24.3 - Constitutional General Appearance: Present: alert, no acute distress, other (Standing at her bedside this AM. Spirits are good. Daughter in the room with her.) - Respiratory Exam Present: non-labored, other (Sats dipped into the upper 80's overnight but is normal this AM.) - Extremities Exam Extremities: Present: pulses intact - Surgical Site Incision: Mepilex dressing intact, dressing intact, no drainage - Integumentary Exam Present: pink, warm, dry - Neurological Exam Present: no deficits - Psychiatric Exam Present: alert, normal affect - Labs Result Diagrams: 03/04/17 04:05 03/04/17 04:05 Abnormal lab results 03/04/17 03/04/17 Range/Units 04:05 04:05 WBC 12.9 H (4.5-11.0) T/MM3 RBC 3.52 L (4.00-5.20) M/MM3 Hgb 10.2 L (12-16) GM/DL Hct 31.9 L (36-46) % Chloride 110 H (98-107) MEQ/L BUN 23.0 H (7-17) MG/DL BUN/Creatinine Ratio 29 H (6-26) RATIO H & H 03/03/17 03/04/17 Range/Units 04:18 04:05 Hgb 10.3 L 10.2 L (12-16) GM/DL Hct 31.7 L 31.9 L (36-46) % Orthopedic Assessment and Plan (1) Primary osteoarthritis of right knee Status: Acute Assessment and Plan: Current anti-coagulation protocol for VTE prophylaxis. SCD's. Ready for discharge to home.. PT/OT services to improve independent function. Discharge Planning per Case Management. - Anticoagulation Therapy Anticoagulation: other (ASA 81mg PO BID for 6 weeks.) Hospital Course Summary Disclaimer: The visit summary below is not to be considered part of the above Progress Note.
[2017-03-04] MEDS: ASPIRIN *EC* 325 MG TABLET PO SCH (09:29)
[2017-03-04] MEDS: DOCUSATE SODIUM 100 MG CAPSULE PO SCH (09:29)
[2017-03-04] MEDS: EYE EACH EYE SCH (09:30)
[2017-03-04] MEDS: POLYETHYL GLYCOL 3350 17gm PACKET PO SCH (09:30)
[2017-03-04] MEDS: CARTEOLOL 1% EACH EYE SCH (09:30)
[2017-03-04] MEDS ORDERED: BISACODYL 10 MG SUPPOSITORY RECTALLY SCH (20:00)
== END 2017-03-04 13:37 | disposition home or self-care (01) | DRG 470 ==
LOC: SRG 08:13
PROVIDERS: ADMIT Orthopaedic Surgery; ATTEND Orthopaedic Surgery